=== PATIENT | male | born 1950 | race Caucasian/White ===

== ENCOUNTER → 2020-02-06 08:56 | Outpatient (CLI) | payer MEDICARE, OTHER, SELFPAY ==
[2020-02-07 08:18] LABS: COVID19 Sendout Not Detected (Not Detect)
== END ==
PROVIDERS: Visit Provider Physician Assistant
DX: Z11.59 Encounter for screening for other viral diseases (principal)
CPT/HCPCS: 87635

== ENCOUNTER → 2020-02-09 06:49 | Outpatient (CLI) | payer MEDICARE, OTHER, SELFPAY ==
--- NOTE | 2020-02-09 | DI.ECHO.S_ITS ---
[facility]---------+ [facility] +---------+ : : [address] [place] [address] : : : : [id number] : : : : Phone: [phone] +---------+ Echocardiogram Report + + :Name: DEVAUGHN AN Study Date: 02/09/2020 Height: 70 in : :[facility] Weight: 255 lb : : Gender: Male BSA: 2.3 m2 : :: 1950 Age: 69 yrs BP: 136/109 mmHg: :Reason For Study: Atrial fibrillation : :Ordering Physician: Endy Katz : :[place] Performed By: Ngozi Alicia : :Referring: ENDY CM : + + Interpretation Summary Moderately dilated left ventricle with ejection fraction 25-30%. Moderate to severe global hypokinesis of the left ventricle. Moderately dilated right ventricle with normal right ventricular systolic function. Severe biatrial enlargement. Mild mitral regurgitation. Mild tricuspid regurgitation. Mildly enlarged ascending aorta. Procedure: A two-dimensional transthoracic echocardiogram with color flow and Doppler was performed. The study quality was technically adequate. A contrast injection of Definity was performed to improve assessment of LV function. There is no prior echocardiogram noted for this patient. The patient was in atrial fibrillation with controlled ventricular rate during the exam. Left Ventricle: The estimated left ventricular end diastolic volume is 200 ml. The left ventricle is moderately dilated. The ejection fraction is estimated to be 25-30%. There is moderate to severe global hypokinesis of the left ventricle. Diastolic function could not be accurately assessed due to atrial fibrillation. Right Ventricle: The right ventricle is moderately dilated. The right ventricular systolic function is normal. Atria: There is severe biatrial enlargement. There is no Doppler evidence for an interatrial shunt. Mitral Valve: The mitral valve is normal in structure and function. There is mild mitral regurgitation. Aortic Valve: The aortic valve is not well visualized. The aortic valve opens well. There is no aortic valve stenosis. There is trace aortic regurgitation. Tricuspid Valve: The tricuspid valve leaflets are thin and pliable. There is mild tricuspid regurgitation. Pulmonic Valve: The pulmonic valve is not well seen, but is grossly normal. There is no pulmonic valvular regurgitation. Great Vessels: The aortic root is normal size. The ascending aorta is mildly enlarged. The IVC is of normal diameter and collapses greater than 50% with a sniff. This suggests a low right atrial pressure of 3 mm Hg. Pericardium/ Pleura There is no pericardial effusion. There is no pleural effusion. MMode/2D Measurements & Calculations LVIDd: 6.6 cm LVOT diam: 2.5 cm LVIDs: 5.2 cm Ao root diam: 4.0 cm FS: 21.2 % asc Aorta Diam: 3.7 cm EPSS: 2.0 cm Ao Arch Diam (Prox Trans): 3.4 cm IVSd: 1.2 cm LVPWd: 1.3 cm LV aldridge. diameter/BSA (cm/m^2): 2.8 LV sys. diameter/BSA (cm/m^2): 2.2 LA A2 area: 35.7 cm2 RA long axis: 6.9 cm LA A4 area: 36.1 cm2 RA area: 31.3 cm2 LA length (vol): 7.5 cm RA vol: 119.9 ml LA vol: 145.2 ml RA : 51.8 ml/m2 LA vol index: 62.7 ml/m2 IVC diam: 2.0 cm RVD1 (basal): 5.0 cm TAPSE: 2.1 cm Doppler Measurements & Calculations Ao V2 max: 94.6 cm/sec LVOT Max Michael: 89.4 cm/sec Ao V2 mean: 66.3 cm/sec LV V1 max P.2 mmHg Ao max P.6 mmHg LV V1 VTI: 14.1 cm Ao mean P.0 mmHg MARII(I,D): 4.1 cm2 Ao V2 VTI: 16.8 cm MARII(V,D): 4.6 cm2 sev ratio: 0.84 MARII indexed to BSA (cm^2/m^2): 1.8 MV E max michael: 88.9 cm/sec TR max michael: 236.6 cm/sec MV A max michael: 0.64 cm/sec TR max P.4 mmHg MV E/A: 140.0 PA V2 max: 48.8 cm/sec Med Peak E' Michael: 7.0 cm/sec PA V2 mean: 33.5 cm/sec E/E' med: 12.8 PA mean P.50 mmHg Lat Peak E' Michael: 9.1 cm/sec PA pr(Accel): 44.7 mmHg E/E' lat: 9.8 E/e' average: 11.3 MV dec time: 0.15 sec SV(LVOT): 68.3 ml Electronically signed by: Sharon Cardoza on Reading Physician:02/09/2020 10:18 AM
--- NOTE | 2020-02-09 20:24 | DI.NM.S_ITS ---
DATE OF SERVICE: 02/09/2020 PROCEDURE: Exercise perfusion study. INDICATION: Paroxysmal AFib. RADIOPHARMACEUTICAL: 26.2 millicurie technetium-99m Myoview IV was injected at stress and 15.5 millicurie technetium-99m Myoview IV was injected at rest. CARDIAC STRESS: The patient underwent exercise perfusion study under the supervision of an attending staff. He walked on Joel protocol for 6 minutes 57 seconds, achieved 128 percent of target heart rate, mildly hypertensive blood pressure response. Baseline blood pressure 146/76 and peak blood pressure 176/102. Functional aerobic impairment 4 percent. No chest pain. Patient had shortness of breath at the beginning of exercise, which persisted during exercise. Baseline rhythm was AFib. Resting heart rate was about [address]-T changes. During AFib, the patient remained having nonspecific ST-T changes. There was baseline QS complexes in V1 to V2, as well. No new convincing significant ischemic changes. The patient remained in AFib. There were some intermittent PVCs, as well, without any ventricular tachycardia. RAW DATA: There is increased subdiaphragmatic activity. The gut shadow was seen high in the chest cavity near the inferior and inferolateral wall of the heart. GATED STUDY: Resting LV ejection fraction 27 percent and stress LV ejection fraction 25 percent with diffuse global hypokinesis. Resting end-diastolic volume 266 mL, suggestive of dilated left ventricle. TID ratio 1.07, which is within normal limits. Lung/heart ratio 0.35, which is within normal limits. MYOCARDIAL PERFUSION: This is a technically challenging study. Significant gut shadow seen interfering with the inferior wall perfusion. Stress supine and resting supine, as well as stress prone images were compared to each other. Stress supine images revealed moderate to large size, moderate to severely decreased perfusion of inferior wall extending into the inferoseptum, as well as moderately decreased perfusion of mid inferolateral wall. Resting supine images revealed moderate to large size, moderate to severely decreased perfusion of inferior wall, as well as inferoseptum. Because of significant gut activity near the inferior and inferolateral wall, prone images were not useful. CONCLUSION: This is an abnormal myocardial perfusion study with predominantly fixed inferior and inferoseptum defect of moderate to large size, as well as moderate reversible ischemia of mid inferolateral wall. There is a significant gut shadow near the inferior and inferolateral border of the heart, which might be causing a perfusion defect in the inferior wall and inferoseptum. However, there is a reversible ischemia in mid inferolateral wall. There is a profound left ventricular dysfunction. Stress left ventricular ejection fraction is 25 percent with dilated left ventricle and global hypokinesis. There was enhanced chronotropic response during exercise with underlying AFib. There is a possibility of tachycardia-induced cardiomyopathy. However, underlying coronary artery disease cannot be ruled out. Findings will be reported to Dr. Montoya. Steven Potts - CAROLA/carole/guero doc#: [id number]/job#: [id number] dd: 02/09/2020 16:59:00 dt: 02/09/2020 20:06:00 DICTATING /COPIES TO: Renetta Owens MD COPIES MNE: JOANNE;
== END ==
PROVIDERS: PCP Internal Medicine; Referring Provider Internal Medicine; Visit Provider Internal Medicine Cardiovascular Disease
DX: I08.1 Rheumatic disorders of both mitral and tricuspid valves (principal); I77.89 Other specified disorders of arteries and arterioles; I48.0 Paroxysmal atrial fibrillation; R94.39 Abnormal result of other cardiovascular function study
CPT/HCPCS: 78452; 93017; 93306; A9502; Q9957

== ENCOUNTER → 2020-02-21 09:21 | Outpatient (CLI) | payer MEDICARE, OTHER, SELFPAY ==
[2020-02-21 10:21] LABS: COVID19 -Nasal RAPID Negative (Negative)
== END ==
PROVIDERS: PCP Internal Medicine; Visit Provider Physician Assistant
DX: Z11.59 Encounter for screening for other viral diseases (principal)
CPT/HCPCS: 87635

== ENCOUNTER → 2020-04-12 10:32 | Outpatient (CLI) | payer MEDICARE, OTHER, SELFPAY ==
[2020-04-12 11:56] LABS: BUN Creatinine Ratio 15.6 (6-22); Blood Urea Nitrogen 15 mg/dL (9-20); Calcium 10.1 mg/dL (8.4-10.2); Carbon Dioxide 31 mmol/L (22-32); Chloride 101 mmol/L (98-107); Cholesterol 210 mg/dL (140-199); Estimated Glomerular Filt Rate > 60.0 mL/min (>60); Glucose 97 mg/dL (80-110); HDL Cholesterol 39 mg/dL (40-60); HEMOLYSIS < 15 (0-50); LDL Cholesterol Calculated 143 mg/dL (<100); Potassium 4.8 mmol/L (3.4-5.1); Sodium 138 mmol/L (137-145); Triglycerides 141 mg/dL (35-150)
== END ==
PROVIDERS: PCP Internal Medicine; Referring Provider Physician Assistant; Visit Provider Physician Assistant
DX: I48.0 Paroxysmal atrial fibrillation (principal); I25.10 Atherosclerotic heart disease of native coronary artery without angina pectoris; I42.8 Other cardiomyopathies
CPT/HCPCS: 36415; 80048; 80061

== ENCOUNTER → 2020-05-05 09:37 | Outpatient (CLI) | payer MEDICARE, OTHER, SELFPAY ==
[2020-05-05 11:24] LABS: BUN Creatinine Ratio 11.4 (6-22); Blood Urea Nitrogen 10 mg/dL (9-20); Calcium 10.1 mg/dL (8.4-10.2); Carbon Dioxide 34 mmol/L (22-32); Chloride 102 mmol/L (98-107); Estimated Glomerular Filt Rate > 60.0 mL/min (>60); Glucose 73 mg/dL (80-110); HEMOLYSIS < 15 (0-50); Potassium 4.4 mmol/L (3.4-5.1); Sodium 138 mmol/L (137-145)
== END ==
PROVIDERS: PCP Internal Medicine; Referring Provider Internal Medicine Cardiovascular Disease; Visit Provider Internal Medicine Cardiovascular Disease
DX: I10 Essential (primary) hypertension (principal)
CPT/HCPCS: 36415; 80048

== ENCOUNTER → 2020-05-11 10:48 | Outpatient (CLI) | payer MEDICARE, OTHER, SELFPAY ==
[2020-05-11 11:56] LABS: BUN Creatinine Ratio 18.8 (6-22); Blood Urea Nitrogen 16 mg/dL (9-20); Calcium 9.9 mg/dL (8.4-10.2); Carbon Dioxide 29 mmol/L (22-32); Chloride 98 mmol/L (98-107); Estimated Glomerular Filt Rate > 60.0 mL/min (>60); Glucose 100 mg/dL (80-110); HEMOLYSIS < 15 (0-50); Sodium 134 mmol/L (137-145)
== END ==
PROVIDERS: PCP Internal Medicine; Referring Provider Internal Medicine Cardiovascular Disease; Visit Provider Internal Medicine Cardiovascular Disease
DX: I10 Essential (primary) hypertension (principal)
CPT/HCPCS: 36415; 80048

== ENCOUNTER → 2020-05-27 14:41 | Outpatient (CLI) | payer MEDICARE, OTHER, SELFPAY ==
--- NOTE | 2020-05-27 14:44 | DI.ECHO.S_ITS ---
[facility]---------+ [facility] +---------+ : : [address] [address] : : : : [id number] : : : : Phone: [phone] : [phone] +---------+ Echocardiogram Report + + :Name: DEVAUGHN AN Study Date: 05/27/2020 Height: 70 in : :[facility] : Weight: 240 lb : : Gender: Male BSA: 2.3 m2 : :: 1950 Age: 69 yrs BP: 171/89 mmHg: :Reason For Study: ATRIAL FIBRILLATION : :Ordering Physician: YVETTE, : :KRIS Mejia P.A-C Performed By: Ngozi Alicia : :Referring: KRIS CRAWFORD : + + Interpretation Summary Left ventricular wall thickness is mildly increased. Left ventricular systolic function is mildly reduced. The ejection fraction is estimated to be 45-50%. LVEF has improved. There is borderline global hypokinesis of the left ventricle. Diastolic parameters suggest a relaxation abnormality of the left ventricle, consistent with probable normal filling pressures. The right ventricle is mildly dilated. The right ventricular systolic function is normal. Pulmonary artery pressures cannot be estimated because of the lack of a measurable TR jet velocity but the IVC suggests a CVP of around 3 mmHg. The left atrium is moderately dilated. The right atrium is mildly dilated. There is mild aortic regurgitation. There is no other significant valvular heart disease. The ascending aorta is mildly enlarged. Procedure: A two-dimensional transthoracic echocardiogram with color flow and Doppler was performed. The study quality was technically adequate. Comparison is made with the echocardiogram of 02/09/2020. The patient had occasional PACs during the exam. The patient was in sinus bradycardia with heart rates between 44-52 bpm during the exam. Left Ventricle: Left ventricular wall thickness is mildly increased. The left ventricle is normal in size. Left ventricular systolic function is mildly reduced. The ejection fraction is estimated to be 45-50%. There is borderline global hypokinesis of the left ventricle. Diastolic parameters suggest a relaxation abnormality of the left ventricle, consistent with probable normal filling pressures. Right Ventricle: The right ventricle is mildly dilated. The right ventricular systolic function is normal. Atria: The left atrium is moderately dilated. The right atrium is mildly dilated. There is no Doppler evidence for an interatrial shunt. Mitral Valve: The mitral valve is normal in structure and function. There is trace mitral regurgitation. Aortic Valve: The aortic valve opens well. There is no aortic valve stenosis. There is mild aortic regurgitation. Tricuspid Valve: The tricuspid valve leaflets are thin and pliable. Pulmonary artery pressures cannot be estimated because of the lack of a measurable TR jet velocity but the IVC suggests a CVP of around 3 mmHg. There is trace tricuspid regurgitation. Pulmonic Valve: The pulmonic valve is not well seen, but is grossly normal. There is no pulmonic valvular regurgitation. There is no other significant valvular heart disease. Great Vessels: The aortic root is normal size. The ascending aorta is mildly enlarged. The IVC is of normal diameter and collapses greater than 50% with a sniff. This suggests a low right atrial pressure of 3 mm Hg. Pericardium/ Pleura There is no pericardial effusion. There is no pleural effusion. MMode/2D Measurements & Calculations LVIDd: 5.2 cm LVOT diam: 2.3 cm LVIDs: 3.7 cm Ao root diam: 3.7 cm FS: 28.9 % asc Aorta Diam: 3.6 cm EPSS: 1.2 cm Ao Arch Diam (Prox Trans): 2.6 cm IVSd: 1.3 cm LVPWd: 1.1 cm LV aldridge. diameter/BSA (cm/m^2): 2.3 LV sys. diameter/BSA (cm/m^2): 1.6 LA A2 area: 29.6 cm2 RA long axis: 5.9 cm LA A4 area: 26.7 cm2 RA area: 22.9 cm2 LA length (vol): 6.5 cm RA vol: 75.7 ml LA vol: 102.9 ml RA : 33.6 ml/m2 LA vol index: 45.6 ml/m2 IVC diam: 1.4 cm RVD1 (basal): 3.6 cm TAPSE: 2.5 cm Doppler Measurements & Calculations Ao V2 max: 152.5 cm/sec LVOT Max Michael: 98.0 cm/sec Ao V2 mean: 106.6 cm/sec LV V1 max P.8 mmHg Ao max P.3 mmHg LV V1 VTI: 23.2 cm Ao mean P.1 mmHg MARII(I,D): 2.7 cm2 Ao V2 VTI: 35.3 cm MARII(V,D): 2.7 cm2 sev ratio: 0.66 MARII indexed to BSA (cm^2/m^2): 1.2 MV E max michael: 69.3 cm/sec PA V2 max: 65.9 cm/sec MV A max michael: 89.1 cm/sec PA V2 mean: 44.7 cm/sec MV E/A: 0.78 PA mean P.91 mmHg Med Peak E' Michael: 7.9 cm/sec PA pr(Accel): 43.0 mmHg E/E' med: 8.8 Lat Peak E' Michael: 11.1 cm/sec E/E' lat: 6.3 E/e' average: 7.5 MV dec time: 0.26 sec SV(LVOT): 95.9 ml Reading Physician:08:56 PM
== END ==
PROVIDERS: PCP Internal Medicine; Referring Provider Physician Assistant; Visit Provider Physician Assistant
DX: I35.1 Nonrheumatic aortic (valve) insufficiency (principal); I77.89 Other specified disorders of arteries and arterioles; I48.0 Paroxysmal atrial fibrillation; I42.8 Other cardiomyopathies; I25.10 Atherosclerotic heart disease of native coronary artery without angina pectoris
CPT/HCPCS: 93306

== ENCOUNTER → 2020-05-28 09:35 | Outpatient (CLI) | payer MEDICARE, OTHER, SELFPAY ==
[2020-05-28 11:37] LABS: BUN Creatinine Ratio 18.2 (6-22); Blood Urea Nitrogen 14 mg/dL (9-20); Calcium 9.7 mg/dL (8.4-10.2); Carbon Dioxide 30 mmol/L (22-32); Chloride 103 mmol/L (98-107); Estimated Glomerular Filt Rate > 60.0 mL/min (>60); Glucose 95 mg/dL (80-110); HEMOLYSIS < 15 (0-50); Sodium 138 mmol/L (137-145)
== END ==
PROVIDERS: PCP Internal Medicine; Referring Provider Internal Medicine Cardiovascular Disease; Visit Provider Internal Medicine Cardiovascular Disease
DX: I10 Essential (primary) hypertension (principal)
CPT/HCPCS: 36415; 80048

== ENCOUNTER → 2020-06-17 09:13 | Outpatient (CLI) | payer MEDICARE, OTHER, SELFPAY ==
[2020-06-17 10:44] LABS: Alanine Aminotransferase 26 IU/L (<50); Albumin 4.1 g/dL (3.5-5.0); Albumin Globulin Ratio 1.4 (1.0-2.8); Alkaline Phosphatase 83 U/L (38-126); Aspartate Aminotransferase 24 IU/L (17-59); BUN Creatinine Ratio 20.2 (6-22); Bilirubin Total 0.7 mg/dL (0.2-1.3); Blood Urea Nitrogen 18 mg/dL (9-20); Calcium 9.5 mg/dL (8.4-10.2); Carbon Dioxide 29 mmol/L (22-32); Chloride 105 mmol/L (98-107); Cholesterol 173 mg/dL (140-199); Estimated Glomerular Filt Rate > 60.0 mL/min (>60); Glucose 102 mg/dL (80-110); HDL Cholesterol 35 mg/dL (40-60); HEMOLYSIS < 15 (0-50); LDL Cholesterol Calculated 119 mg/dL (<100); Potassium 4.3 mmol/L (3.4-5.1); Sodium 138 mmol/L (137-145); Total Protein 7.1 g/dL (6.3-8.2); Triglycerides 94 mg/dL (35-150)
[2020-06-17 11:43] LABS: TSH w/ Reflex to FT4 0.96 uIU/mL (0.47-4.68)
== END ==
PROVIDERS: PCP Internal Medicine; Referring Provider Physician Assistant; Visit Provider Physician Assistant
DX: I48.0 Paroxysmal atrial fibrillation (principal); I25.110 Atherosclerotic heart disease of native coronary artery with unstable angina pectoris; I42.0 Dilated cardiomyopathy
CPT/HCPCS: 36415; 80053; 80061; 84443

== ENCOUNTER → 2020-08-30 13:40 | Outpatient (CLI) | payer MEDICARE, OTHER, SELFPAY ==
--- NOTE | 2020-08-30 | DI.ECHO.S_ITS ---
[facility]---------+ [facility] +---------+ : : [address] [place] [place] : : : : [id number] : : : : Phone: [phone] : [phone] +---------+ Echocardiogram Report + + :Name: DEVAUGHN AN Study Date: 08/30/2020 Height: 70 in : :[facility] ReadingLocation: Weight: 240 lb: : Gender: Male BSA: 2.3 m2 : :: 1950 Age: 70 yrs : :Reason For Study: ATRIAL FIBRILLATION : :Ordering Physician: YVETTE, : :KRIS Mejia Performed By: Ngozi Alicia : :Referring: KRIS CRAWFORD : + + Interpretation Summary Limited Echo. Visualization poor and definity used to enhance LV endothelial visualization. 1) Upper nromal left ventricular size with low normal systolic function (EF about 55%). 2) Mildly enlarged right ventricle with normal systolic function. 3) Severe left atrial enlargement. 4) Compared to the Echo done 05/27/2020, LVEF has improved slightly from 45-50% to about 55% on this study. Procedure: A two-dimensional transthoracic echocardiogram with color flow and Doppler was performed in limited views only to assess ejection fraction.. The study quality was technically adequate. Comparison is made with the echocardiogram of 05/27/2020. The patient was in sinus bradycardia with heart rates between 41-50 bpm during the exam. Left Ventricle: The estimated left ventricular end diastolic volume is 164 ml. The left ventricle is mildly dilated. There is normal left ventricular wall thickness. Left ventricular ejection fraction is estimated to be 55 +/- 5%. There are no focal wall motion abnormalities. Right Ventricle: The right ventricle is mildly dilated. The right ventricular systolic function is normal. Atria: The left atrium is severely dilated. The right atrium is mildly dilated. Pericardium/ Pleura There is no pericardial effusion. There is no pleural effusion. MMode/2D Measurements & Calculations LVIDd: 5.5 cm LA A2 area: 32.6 cm2 LVIDs: 4.1 cm LA A4 area: 32.2 cm2 FS: 25.4 % LA length (vol): 6.6 cm EPSS: 0.96 cm LA vol: 134.9 ml IVSd: 1.0 cm LA vol index: 59.8 ml/m2 LVPWd: 0.78 cm LV aldridge. diameter/BSA (cm/m^2): 2.4 LV sys. diameter/BSA (cm/m^2): 1.8 RA long axis: 6.2 cm RVD1 (basal): 4.5 cm RA area: 25.9 cm2 TAPSE: 2.3 cm RA vol: 92.9 ml RA : 41.2 ml/m2 Reading Physician:03:52 PM
== END ==
PROVIDERS: PCP Internal Medicine; Referring Provider Physician Assistant; Visit Provider Physician Assistant
DX: I48.0 Paroxysmal atrial fibrillation (principal); I42.0 Dilated cardiomyopathy; I25.110 Atherosclerotic heart disease of native coronary artery with unstable angina pectoris
CPT/HCPCS: 93307; Q9957

== ENCOUNTER → 2021-01-27 08:55 | Outpatient (CLI) | payer MEDICARE, OTHER, SELFPAY ==
[2021-01-27 10:57] LABS: Alanine Aminotransferase 26 IU/L (<50); Albumin 4.4 g/dL (3.5-5.0); Albumin Globulin Ratio 1.5 (1.0-2.8); Alkaline Phosphatase 94 U/L (38-126); Aspartate Aminotransferase 23 IU/L (17-59); BUN Creatinine Ratio 22.5 (6-22); Bilirubin Total 0.6 mg/dL (0.2-1.3); Blood Urea Nitrogen 20 mg/dL (9-20); Carbon Dioxide 27 mmol/L (22-32); Chloride 103 mmol/L (98-107); Estimated Glomerular Filt Rate > 60.0 mL/min (>60); Globulin 2.9 g/dL (1.7-4.1); Glucose 71 mg/dL (80-110); HEMOLYSIS < 15 (0-50); Potassium 4.7 mmol/L (3.4-5.1); Sodium 140 mmol/L (137-145); Total Protein 7.3 g/dL (6.3-8.2)
[2021-01-27 11:28] LABS: TSH w/ Reflex to FT4 0.49 uIU/mL (0.47-4.68)
== END ==
PROVIDERS: PCP Internal Medicine; Referring Provider Internal Medicine Cardiovascular Disease; Visit Provider Internal Medicine Cardiovascular Disease
DX: I48.0 Paroxysmal atrial fibrillation (principal)
CPT/HCPCS: 36415; 80053; 84443

== ENCOUNTER → 2022-06-06 10:51 | Outpatient (CLI) | payer MEDICARE, OTHER, SELFPAY | PROVIDERS: PCP Internal Medicine; Visit Provider Physician Assistant | DX: S80.812A Abrasion, left lower leg, initial encounter (principal) | CPT/HCPCS: 87070; 87205 ==

== ENCOUNTER → 2022-06-06 11:00 | Outpatient (CLI) | payer MEDICARE, OTHER, SELFPAY ==
--- NOTE | 2022-06-06 11:03 | DI.RAD.S_ITS ---
PROCEDURE: XR TIBIA FIBULA LT 2V INDICATIONS: Wound left leg TECHNIQUE: 2 views of the tibia and fibula were acquired. COMPARISON: None. FINDINGS: Bones: No fractures or dislocations. No suspicious bony lesions. Soft tissues: No suspicious soft tissue calcifications or masses. IMPRESSION: No lower leg fracture or dislocation. No radiographic evidence of osteomyelitis. No abnormal soft tissue calcifications or subcutaneous emphysema. Dictated by: Alexis London M.D. on 06/06/2022 at 11:15 Approved by: Alexis London M.D. on 06/06/2022 at 11:15
== END ==
PROVIDERS: PCP Internal Medicine; Referring Provider Physician Assistant; Visit Provider Physician Assistant
DX: S81.802A Unspecified open wound, left lower leg, initial encounter (principal); S80.812A Abrasion, left lower leg, initial encounter; X58.XXXA Exposure to other specified factors, initial encounter
CPT/HCPCS: 73590; 87070; 87077; 87186; 87205

== ENCOUNTER → 2022-09-08 08:04 | Outpatient (CLI) | payer MEDICARE, OTHER, SELFPAY ==
[2022-09-08 10:01] LABS: BUN Creatinine Ratio 19.6 (6-22); Blood Urea Nitrogen 19 mg/dL (9-20); Carbon Dioxide 26 mmol/L (22-32); Chloride 100 mmol/L (98-107); Estimated Glomerular Filt Rate > 60 mL/min (>60); Glucose 94 mg/dL (80-110); HEMOLYSIS < 15 (0-50); Potassium 5.2 mmol/L (3.4-5.1); Sodium 136 mmol/L (137-145)
== END ==
PROVIDERS: PCP Internal Medicine; Referring Provider Internal Medicine Cardiovascular Disease; Visit Provider Internal Medicine Cardiovascular Disease
DX: I10 Essential (primary) hypertension (principal)
CPT/HCPCS: 36415; 80048

== ENCOUNTER → 2023-01-19 13:34 | Outpatient (CLI) | payer MEDICARE, OTHER, SELFPAY ==
[2023-01-19 15:03] LABS: Add Manual Diff / Slide Review NO; Basophils Absolute Auto 100 /uL (0-100); Basophils Percent Auto 1.3 % (0-2); Eosinophils Absolute Auto 400 /uL (0-450); Eosinophils Percent Auto 4.5 % (2-4); Hemoglobin 15.2 g/dL (13.5-17.5); Lymphocytes Absolute Auto 2300 /uL (1100-4500); Lymphocytes Percent Auto 28.1 % (25-40); Mean Corpuscular HGB Conc 33.8 % (30-36); Mean Corpuscular Hemoglobin 30.7 PG (26-34); Mean Corpuscular Volume 90.7 fL (80-100); Monocytes Absolute Auto 700 /uL (0-900); Monocytes Percent Auto 8.2 % (3-14); Neutrophils Absolute Auto 4800 /uL (1500-7000); Neutrophils Percent Auto 57.9 % (50-75); Platelet Count 233 X10^3/uL (150-400); Red Blood Cell Count 4.96 X10^6/uL (4.5-5.9); Red Cell Distribution Width 13.6 % (11.6-14.8); White Blood Cell Count 8.3 X10^3/uL (4.5-11.0)
[2023-01-19 15:32] LABS: HEMOLYSIS < 15 (0-50); Potassium 5.3 mmol/L (3.4-5.1)
[2023-01-19 15:33] LABS: BUN Creatinine Ratio 23.2 (6-22); Blood Urea Nitrogen 22 mg/dL (9-20); Calcium 9.8 mg/dL (8.4-10.2); Carbon Dioxide 27 mmol/L (22-32); Chloride 104 mmol/L (98-107); Estimated Glomerular Filt Rate > 60 mL/min (>60); Glucose 66 mg/dL (80-110); Sodium 141 mmol/L (137-145)
== END ==
PROVIDERS: PCP Internal Medicine; Referring Provider Internal Medicine Cardiovascular Disease; Visit Provider Internal Medicine Cardiovascular Disease
DX: I48.0 Paroxysmal atrial fibrillation (principal)
CPT/HCPCS: 36415; 80048; 85025

== ENCOUNTER → 2023-03-26 09:09 | Outpatient (CLI) | payer MEDICARE, OTHER, SELFPAY ==
[2023-03-26 09:47] LABS: Add Manual Diff / Slide Review NO; Basophils Absolute Auto 100 /uL (0-100); Basophils Percent Auto 0.8 % (0-2); Eosinophils Absolute Auto 300 /uL (0-450); Eosinophils Percent Auto 3.5 % (2-4); Hematocrit 45.4 % (41-53); Hemoglobin 15.2 g/dL (13.5-17.5); Lymphocytes Absolute Auto 1800 /uL (1100-4500); Lymphocytes Percent Auto 24.6 % (25-40); Mean Corpuscular HGB Conc 33.5 % (30-36); Mean Corpuscular Hemoglobin 30.4 PG (26-34); Mean Corpuscular Volume 90.8 fL (80-100); Monocytes Absolute Auto 700 /uL (0-900); Monocytes Percent Auto 9.1 % (3-14); Neutrophils Absolute Auto 4600 /uL (1500-7000); Platelet Count 259 X10^3/uL (150-400); Red Cell Distribution Width 13.4 % (11.6-14.8); White Blood Cell Count 7.3 X10^3/uL (4.5-11.0)
[2023-03-26 10:10] LABS: BUN Creatinine Ratio 26.7 (6-22); Blood Urea Nitrogen 23 mg/dL (9-20); Calcium 9.9 mg/dL (8.4-10.2); Carbon Dioxide 24 mmol/L (22-32); Chloride 105 mmol/L (98-107); Estimated Glomerular Filt Rate > 60 mL/min (>60); Glucose 73 mg/dL (80-110); HEMOLYSIS < 15 (0-50); Potassium 4.6 mmol/L (3.4-5.1); Sodium 139 mmol/L (137-145)
== END ==
PROVIDERS: PCP Internal Medicine; Referring Provider Internal Medicine Cardiovascular Disease; Visit Provider Internal Medicine Cardiovascular Disease
DX: I48.0 Paroxysmal atrial fibrillation (principal)
CPT/HCPCS: 36415; 80048; 85025